=== PATIENT | female | born 2000 | race Caucasian/White ===

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

== ENCOUNTER 2018-03-07 14:04 | Emergency (ER) | payer BC | END 2018-03-07 14:44 | disposition left against medical advice (07) | LOC: UCCORT 14:04 | DX: M79.662 Pain in left lower leg (principal); Z53.21 Procedure and treatment not carried out due to patient leaving prior to being seen by health care provider ==